=== PATIENT | female | born 1980 ===

== ENCOUNTER 2016-05-06 06:29 | Emergency (ER) | payer OTHER, MEDICAID ==
[2016-05-06] MEDS ORDERED: PREDNISONE 20 MG TABLET ONE (07:11)
[2016-05-06 07:28] LABS: SPECIFIC GRAVITY 1.015 (1.001-1.030); URINE APPEARANCE CLEAR; URINE BILIRUBIN NEGATIVE (NEGATIVE); URINE BLOOD 3+ (NEGATIVE); URINE COLOR YELLOW; URINE GLUCOSE (UA) NEGATIVE (NEGATIVE); URINE LEUKOCYTE ESTERASE NEGATIVE (NEGATIVE); URINE NITRITE NEGATIVE (NEGATIVE); URINE PROTEIN TRACE (NEGATIVE); URINE UROBILINOGEN NORMAL (0-1 mg/dl)
[2016-05-06 07:34] LABS: URINE BACTERIA 0; URINE EPITHELIAL CELLS FEW /hpf; URINE WBC 0-1 /hpf
[2016-05-06] MEDS ORDERED: HYDROCODONE/ACETAMINOPHEN 5/325MG TABLET ONE (07:49)
== END 2016-05-06 07:52 | disposition home or self-care (01) ==
LOC: ED 06:29
DX: M54.31 Sciatica, right side (principal); R31.9 Hematuria, unspecified; E05.90 Thyrotoxicosis, unspecified without thyrotoxic crisis or storm
CPT/HCPCS: 87086; 81001; 99282; 51798; 99283; J7512; A9270